=== PATIENT | female | born 1990 | race Two or more races ===

== ENCOUNTER 2019-07-06 12:44 | Emergency (ER) | payer MEDICAID ==
[~2019-07-06] VITALS: Ht 154.9 cm; Wt 65.0 kg
[2019-07-06 12:52] VITALS: BP 127/64
== END 2019-07-06 14:29 | disposition home or self-care (01) ==
LOC: ER 12:44
DX: R50.9 Fever, unspecified (principal)
CPT/HCPCS: 99282

== ENCOUNTER 2021-08-22 14:22 | Emergency (ER) | payer MEDICAID ==
[~2021-08-22] VITALS: Ht 154.9 cm; Wt 59.0 kg
[2021-08-22 14:23] VITALS: BP 120/83
[2021-08-22] MEDS ORDERED: METOCLOPRAMIDE HCL 10MG/2ML VIAL IV ONE (19:45)
[2021-08-22 19:52] LABS: BASOPHILS % 0.4 % (0.0-2.0); HEMATOCRIT. 37.7 % (36.0-48.0); HEMOGLOBIN. 12.3 g/dL (12.0-16.0); LYMPHOCYTES % 19.2 % (20.0-50.0); MEAN CORPUSCULAR VOLUME 79.3 fL (81.0-99.0); MEAN PLATELET VOLUME 8.6 fl (7.4-10.4); MONOCYTES % 5.5 % (2.0-8.0); NEUTROPHILS % 73.9 % (40.0-76.0); PLATELET 245 x1000/uL (130-400); RED BLOOD CELL COUNT 4.75 mill/uL (4.2-5.4); RED CELL DISTRIBUTION WIDTH 15.2 % (11.6-14.6)
[2021-08-22 19:57] LABS: CLARITY URINE CLOUDY (CLEAR); COLOR URINE YELLOW (YELLOW); KETONES URINE NEGATIVE (NEGATIVE); LEUKOCYTE ESTERASE URINE 3+ (NEGATIVE); NITRITE URINE POSITIVE (NEGATIVE); OCCULT BLOOD URINE 3+ (NEGATIVE); PH URINE 5.5 (4.5-8.0); PROTEIN URINE 1+ (NEGATIVE); SPECIFIC GRAVITY URINE 1.029 (1.005-1.030)
[2021-08-22 19:59] LABS: CHLORIDE 109 mEq/L (98-107); HCG SCREEN NEGATIVE
[2021-08-22] MEDS ORDERED: NITR-87 MT (22:27)
== END 2021-08-22 22:57 | disposition home or self-care (01) ==
LOC: ER 14:22
DX: R42 Dizziness and giddiness (principal); R51.9 Headache, unspecified; R11.2 Nausea with vomiting, unspecified; Z98.890 Other specified postprocedural states
CPT/HCPCS: 36415; 71045; 80053; 81003; 81025; 84703; 85025; 87077; 87186; 93005; 96374; 99285

== ENCOUNTER 2021-10-31 16:53 | Emergency (ER) | payer MEDICAID ==
[~2021-10-31] VITALS: Ht 157.5 cm; Wt 51.0 kg
[~2021-10-31 16:53] MED LIST: NITR-87 MT
[2021-10-31 17:09] VITALS: BP 120/76
[2021-10-31] MEDS ORDERED: IBUPROFEN 600MG TABLET PO ONE (23:00)
[2021-10-31] MEDS ORDERED: IBUP-2029 MT (23:04)
[2021-10-31] MEDS ORDERED: CYCL5TAB MT (23:04)
== END 2021-10-31 23:46 | disposition home or self-care (01) ==
LOC: ER 16:53
DX: S16.1XXA Strain of muscle, fascia and tendon at neck level, initial encounter (principal); V49.9XXA Car occupant (driver) (passenger) injured in unspecified traffic accident, initial encounter; Y93.89 Activity, other specified; Y92.89 Other specified places as the place of occurrence of the external cause; Y99.8 Other external cause status
CPT/HCPCS: 99282

== ENCOUNTER 2021-11-07 14:04 | Emergency (ER) | payer MEDICAID ==
[~2021-11-07] VITALS: Ht 160 cm; Wt 65.0 kg
[~2021-11-07 14:04] MED LIST changes: +CYCL5TAB MT; +IBUP-2029 MT
[2021-11-07 14:24] VITALS: BP 117/82
[2021-11-07] MEDS ORDERED: IBUPROFEN 600MG TABLET PO ONE (17:30)
[2021-11-07 18:18] LABS: CLARITY URINE CLOUDY (CLEAR); COLOR URINE YELLOW (YELLOW); KETONES URINE NEGATIVE (NEGATIVE); LEUKOCYTE ESTERASE URINE 3+ (NEGATIVE); NITRITE URINE POSITIVE (NEGATIVE); OCCULT BLOOD URINE TRACE (NEGATIVE); PH URINE 5.5 (4.5-8.0); PROTEIN URINE NEGATIVE (NEGATIVE); SPECIFIC GRAVITY URINE 1.022 (1.005-1.030); UROBILINOGEN URINE 0.2 E.U./dL (0.2-1.0)
[2021-11-07] MEDS ORDERED: CEPH500C2 MT (19:28)
[2021-11-07] MEDS ORDERED: IBUP-2029 MT (19:28)
== END 2021-11-07 19:58 | disposition home or self-care (01) ==
LOC: ER 14:04
DX: N30.90 Cystitis, unspecified without hematuria (principal); Z98.890 Other specified postprocedural states
CPT/HCPCS: 72040; 74018; 81003; 81025; 99284

== ENCOUNTER 2022-04-17 11:06 | Emergency (ER) | payer MEDICAID ==
[~2022-04-17] VITALS: Ht 167.6 cm; Wt 80.0 kg
[~2022-04-17 11:06] MED LIST changes: +CEPH500C2 MT
[2022-04-17 11:15] VITALS: BP 133/70
[2022-04-17] MEDS ORDERED: ACETAMINOPHEN 325MG TABLET PO ONE (12:00)
[2022-04-17 12:11] LABS: BASOPHILS % 0.3 % (0.0-2.0); EOSINOPHILS % 1.2 % (0.0-5.0); HEMATOCRIT. 33.8 % (36.0-48.0); HEMOGLOBIN. 11.2 g/dL (12.0-16.0); LYMPHOCYTES % 25.8 % (20.0-50.0); MEAN CORPUSCULAR HEMOGLOBIN 26.2 pg (28.0-32.0); MEAN CORPUSCULAR VOLUME 79.4 fL (81.0-99.0); MEAN PLATELET VOLUME 8.5 fl (7.4-10.4); MONOCYTES % 8.7 % (2.0-8.0); PLATELET 274 x1000/uL (130-400); RED BLOOD CELL COUNT 4.26 mill/uL (4.2-5.4); RED CELL DISTRIBUTION WIDTH 16.5 % (11.6-14.6)
[2022-04-17 12:17] LABS: CHLORIDE 107 mEq/L (98-107)
[2022-04-17 12:27] LABS: CLARITY URINE CLEAR (CLEAR); COLOR URINE YELLOW (YELLOW); KETONES URINE NEGATIVE (NEGATIVE); LEUKOCYTE ESTERASE URINE 1+ (NEGATIVE); NITRITE URINE NEGATIVE (NEGATIVE); OCCULT BLOOD URINE NEGATIVE (NEGATIVE); PH URINE 6.5 (4.5-8.0); PROTEIN URINE NEGATIVE (NEGATIVE); SPECIFIC GRAVITY URINE 1.008 (1.005-1.030); UROBILINOGEN URINE 0.2 E.U./dL (0.2-1.0)
[2022-04-17 12:28] LABS: B-HCG QUANTITATIVE < 1 mIU/mL (<3)
[2022-04-17 13:05] LABS: *AMPHETAMINES SCREEN URINE NEGATIVE (NEGATIVE); *BARBITURATES SCREEN URINE NEGATIVE (NEGATIVE); *BENZODIAZEPINES SCREEN URINE NEGATIVE (NEGATIVE); *COCAINE SCREEN URINE NEGATIVE (NEGATIVE); CANNABINOID URINE SCREEN NEGATIVE (NEGATIVE); METHADONE URINE SCREEN NEGATIVE (NEGATIVE); OPIATES URINE SCREEN NEGATIVE (NEGATIVE); PHENCYCLIDINE URINE SCREEN NEGATIVE (NEGATIVE)
[2022-04-17] MEDS ORDERED: CEPH500C2 MT (13:54)
[2022-04-17] MEDS ORDERED: NAPR-1074 MT (13:54)
== END 2022-04-17 14:10 | disposition home or self-care (01) ==
LOC: ER 11:06
DX: N83.202 Unspecified ovarian cyst, left side (principal); N39.0 Urinary tract infection, site not specified; Z00.00 Encounter for general adult medical examination without abnormal findings; Z98.890 Other specified postprocedural states
CPT/HCPCS: 36415; 76830; 76856; 80053; 80305; 81003; 81025; 84702; 85025; 86850; 86900; 99284

== ENCOUNTER 2024-07-18 21:07 | Emergency (ER) | payer MEDICAID ==
[~2024-07-18] VITALS: Ht 148.6 cm; Wt 64.0 kg
[~2024-07-18 21:07] MED LIST changes: -CYCL5TAB MT; +CYCL5TAB3 MT; +NAPR-1074 MT
[2024-07-18 21:16] VITALS: O2SAT 100
[2024-07-18 21:20] VITALS: BP 127/86; PULSE 82; RESP 18; TEMP 36.9; O2SAT 100
[2024-07-18 22:35] LABS: BASOPHILS % 0.6 % (0.0-2.0); DIFFERENTIAL COMMENT 0; EOSINOPHILS % 1.4 % (0.0-5.0); HEMATOCRIT. 32.8 % (36.0-48.0); HEMOGLOBIN. 10.4 g/dL (12.0-16.0); LYMPHOCYTES % 19.9 % (20.0-50.0); MEAN CORPUSCULAR HEMOGLOBIN 23.8 pg (28.0-32.0); MEAN CORPUSCULAR HGB CONC 31.7 g/dL (31.0-37.0); MEAN PLATELET VOLUME 8.6 fl (7.4-10.4); MONOCYTES % 8.6 % (2.0-8.0); NEUTROPHILS % 69.5 % (40.0-76.0); PLATELET 268 x1000/uL (130-400); RED BLOOD CELL COUNT 4.38 mill/uL (4.2-5.4); WHITE BLOOD COUNT 5.4 x1000/uL (4.5-11.0)
[2024-07-18 22:36] LABS: CHLORIDE 105 mEq/L (98-107); POTASSIUM 3.6 mEq/L (3.5-5.1); SODIUM 137 mEq/L (136-145)
[2024-07-18 22:37] LABS: CARBON DIOXIDE 25 mEq/L (21-32)
[2024-07-18 22:38] LABS: CALCIUM 9.5 mg/dL (8.7-10.4)
[2024-07-18 22:42] LABS: CREATININE 0.6 mg/dL (0.6-1.0); GLUCOSE 97 mg/dL (70-105); UREA NITROGEN BLOOD 8 mg/dL (9-23)
[2024-07-18 22:50] LABS: TROPONIN I HIGH SENSITIVITY < 4 ng/L (3.0-34)
[2024-07-18 22:50] LABS: CLARITY URINE CLEAR (CLEAR); COLOR URINE YELLOW (YELLOW); GLUCOSE URINE NEGATIVE (NEGATIVE); KETONES URINE NEGATIVE (NEGATIVE); LEUKOCYTE ESTERASE URINE TRACE (NEGATIVE); NITRITE URINE NEGATIVE (NEGATIVE); OCCULT BLOOD URINE NEGATIVE (NEGATIVE); PROTEIN URINE NEGATIVE (NEGATIVE); SPECIFIC GRAVITY URINE 1.018 (1.005-1.030); UROBILINOGEN URINE 0.2 E.U./dL (0.2-1.0)
[2024-07-18 22:59] LABS: ALANINE AMINOTRANSFERASE 13 IU/L (10-49); ALBUMIN 4.4 g/dL (3.2-4.8); ASPARTATE AMINOTRANSFERASE 18 IU/L (<34); BILIRUBIN DIRECT < 0.1 mg/dL (<=3.0)
[2024-07-18 23:00] LABS: BILIRUBIN TOTAL 0.3 mg/dL (0.1-1.0); PROTEIN TOTAL 7.8 g/dL (6.0-8.3)
[2024-07-18 23:09] LABS: BACTERIA URINE 2+; RBC URINE 0-2 /hpf (0-2); SQUAMOUS EPITHELIAL CELL URINE FEW /lpf (RARE/1+); WBC URINE 0-2 /hpf (0-2)
[2024-07-18 23:43] LABS: HCG SCREEN NEGATIVE
== END 2024-07-19 00:28 | disposition home or self-care (01) ==
LOC: ER 21:07
DX: R10.9 Unspecified abdominal pain (principal); R07.89 Other chest pain; D64.9 Anemia, unspecified; I10 Essential (primary) hypertension; Z98.890 Other specified postprocedural states; Z79.899 Other long term (current) drug therapy
CPT/HCPCS: 36415; 71046; 80048; 80076; 81003; 81025; 84484; 84703; 85025; 86850; 86900; 93005; 99285

== ENCOUNTER 2024-11-30 12:13 | Emergency (ER) | payer MEDICAID ==
[~2024-11-30] VITALS: Ht 157.5 cm; Wt 60.0 kg
[~2024-11-30 12:13] MED LIST changes: +IBUP-1455 MT; -IBUP-2029 MT
[2024-11-30 12:20] VITALS: O2SAT 99
[2024-11-30 14:03] VITALS: BP 113/67; PULSE 70; RESP 16; TEMP 36.7; O2SAT 99
== END 2024-11-30 14:04 | disposition home or self-care (01) ==
LOC: ER 12:13
DX: N64.4 Mastodynia (principal); R10.2 Pelvic and perineal pain; Z79.899 Other long term (current) drug therapy; Z98.890 Other specified postprocedural states
CPT/HCPCS: 36415; 84702; 99283